=== PATIENT | female | born 1930 | race Caucasian/White ===

== ENCOUNTER 2018-12-04 15:19 | Emergency (ER) | payer MEDICARE ==
[~2018-12-04] VITALS: Ht 157.5 cm; Wt 68.0 kg
[2018-12-04] MEDS ORDERED: HYDCHL12.5 PO (16:34)
[2018-12-04] MEDS ORDERED: EUTHYROX25 MCG (16:34)
[2018-12-04] MEDS ORDERED: Norco 5-325 Ta1 EACH PO (17:55)
== END 2018-12-04 18:26 | disposition home or self-care (01) ==
LOC: ER 15:19
DX: S52.612A Displaced fracture of left ulna styloid process, initial encounter for closed fracture (principal); S59.292A Other physeal fracture of lower end of radius, left arm, initial encounter for closed fracture; W18.30XA Fall on same level, unspecified, initial encounter; I10 Essential (primary) hypertension; Z88.2 Allergy status to sulfonamides; Z79.899 Other long term (current) drug therapy
CPT/HCPCS: 32405; 36415; 73100; 73110; J3010

== ENCOUNTER 2018-12-06 19:12 | Emergency (ER) | payer MEDICARE ==
[~2018-12-06] VITALS: Ht 157.5 cm; Wt 68.0 kg
[~2018-12-06 19:12] MED LIST: EUTHYROX25 MCG; HYDCHL12.5 PO; Norco 5-325 Ta1 EACH PO
== END 2018-12-06 19:55 | disposition home or self-care (01) ==
LOC: ER 19:12
DX: M79.81 Nontraumatic hematoma of soft tissue (principal); S52.92XD Unspecified fracture of left forearm, subsequent encounter for closed fracture with routine healing; X58.XXXD Exposure to other specified factors, subsequent encounter; Z88.2 Allergy status to sulfonamides; Z79.899 Other long term (current) drug therapy; I10 Essential (primary) hypertension
CPT/HCPCS: 99282

== ENCOUNTER 2018-12-17 06:16 | Day surgery (SDC) | payer MEDICARE ==
[~2018-12-17] VITALS: Ht 157.5 cm; Wt 67.8 kg
[~2018-12-17 06:16] MED LIST changes: -EUTHYROX25 MCG; +EUTHYROX25 MCG PO
--- NOTE | 2018-12-17 06:39 | NUR ---
PT ADMITTED TO [facility]. AGREES WITH PLANNED SURGERY.
--- NOTE | 2018-12-17 06:46 | NUR ---
LUNG SOUNDS CLEAR.
--- NOTE | 2018-12-17 10:30 | NUR ---
PT BROUGHT TO STEP ALERT AND ORIENTED. ELEVATED LUE, ICED. PT HAS MINIMAL SENSATION TO L HAND AND NO SENSATION TO ELBOW. EXTREMITY WARM WITH PURPLE BRUISING AND CAP REFILL < 3SEC. TO FINGERS ON LEFT HAND. PT HAS HEALING BRUISES TO LUE. DAUGHTER AT BEDSIDE. PROVIDED FLUID.
--- NOTE | 2018-12-17 11:09 | NUR ---
PT FEELING REALLY DIZZY SO PROVIDED COMFORT TO ALLOW REST PERIOD TO SEE IF IT RESOLVES ENOUGH TO SEND PT HOME.
--- NOTE | 2018-12-17 13:08 | NUR ---
Discharge instructions reviewed with patient. Patient verbalizes understanding. Copy given to patient to take home. Patient States Post-Procedure ride home has been arranged. Discharged via wheelchair to private car for ride home.
== END 2018-12-17 22:42 | disposition home or self-care (01) ==
LOC: ORSCMMR 06:16 → ORD 07:30 → ORSCMMR 07:30
PROVIDERS: Orthopaedic Surgery
PROC: 0PSJ04Z Reposition Left Radius with Internal Fixation Device, Open Approach (ICD-10-PCS; principal; 2018-12-17 07:30)
DX: S52.552A Other extraarticular fracture of lower end of left radius, initial encounter for closed fracture (principal); I10 Essential (primary) hypertension; E03.9 Hypothyroidism, unspecified; Z79.899 Other long term (current) drug therapy
CPT/HCPCS: 73100; C1713; J0360; J0690; J1885; J2370; J2704; J3010; J7120

== ENCOUNTER 2019-07-29 12:56 | Day surgery (SDC) | payer MEDICARE ==
[~2019-07-29] VITALS: Ht 160 cm; Wt 68.6 kg
== END 2019-07-29 16:28 | disposition home or self-care (01) ==
LOC: ORSCSDS 12:56
PROVIDERS: Student in an Organized Health Care Education/Training Program
PROC: 0D758ZZ Dilation of Esophagus, Via Natural or Artificial Opening Endoscopic (ICD-10-PCS; principal; 2019-07-29 14:30)
PROC: 0DB58ZX Excision of Esophagus, Via Natural or Artificial Opening Endoscopic, Diagnostic (ICD-10-PCS; principal; 2019-07-29 14:30)
DX: R13.10 Dysphagia, unspecified (principal); K44.9 Diaphragmatic hernia without obstruction or gangrene; K22.2 Esophageal obstruction; K21.9 Gastro-esophageal reflux disease without esophagitis; I10 Essential (primary) hypertension; Z79.899 Other long term (current) drug therapy
CPT/HCPCS: 88305; 88312; C1726; J2704; J7120